=== PATIENT | male | born 1960 | race Caucasian/White ===

== ENCOUNTER 2017-04-15 20:01 | Emergency (ER) | payer SELFPAY ==
[~2017-04-15] VITALS: Ht 177.8 cm; Wt 67.9 kg
[~2017-04-15 20:01] MED LIST: ALEVE220 MG PO
[2017-04-15] MEDS ORDERED: NAPROSYN500 MG PO (23:05)
[2017-04-15] MEDS ORDERED: NORCO 5/3251 TABLET PO (23:05)
[2017-04-15 23:23] VITALS: BP 159/87
== END 2017-04-15 23:24 | disposition home or self-care (01) ==
LOC: EME 20:01
DX: M79.602 Pain in left arm (principal); F17.200 Nicotine dependence, unspecified, uncomplicated
CPT/HCPCS: 73060; 93971; 99281; 99283